=== PATIENT | male | born 1955 | race Caucasian/White ===

== ENCOUNTER 2017-11-13 10:46 | Inpatient (IN) | payer MEDICARE, SELFPAY ==
[2017-11-13 14:45] VITALS: BMI 23.5
[2017-11-13] MEDS ORDERED: Nitroglycerin 2% Ointment 1 INCH/1 GM Packet TOP SCH (14:45)
[2017-11-13 15:24] LABS: CKMB 3.4 ng/mL (0-6.6); Troponin I 0.177 ng/mL (< 0.028)
--- NOTE | 2017-11-13 16:02 | PDOC.EVN ---
Attending Addendum - Attending Addendum I personally evaluated the patient and discussed the management with Dr. Gutierrez. I agree with the History, Examination, Assessment and Plan documented in her H& P with any addition or exceptions noted below. Patient is 62 yo gentleman with CAD s/p CABG 13 years ago, COPD, CHF with EF 35 % (per outside records), who is presenting with 7-10 day history of chest pain. Right sided pressure type pain with radiation to neck and back. Reports similar pain as when he had to have his CABG. Endorses shortness of breath and nausea with pain. Reports symptoms typically occur in the morning and last about 5 minutes. Progressive in nature over the last few days. He endorses not being on his medications for about the last 1 week due to not being able to see his PCP. It has been near 1 year since last visit with [facility] in [place], [place]. He was observed at [facility] with no noted EKG changes. However, troponins elevated to indeterminate range and he was transferred here. He is not currently complaining of chest pain. Repeat EKG here shows a mild decrease in troponins from the outside hospital. EKG shows incomplete RBBB with a single PVC, no evidence of ischemia. He will be obs for telemetry monitoring. Will check another Troponin to see trend at this institution. He seems to be having worsening anginal type pain that could signify unstable angina. Will give a dose of therapeutic lovenox and consult cardiology in the AM due to his medical history. Nitro, Morphine, and O2 provided as needed for symptomatic support. Resume home meds as noncompliance is likely partly to blame for his worsening symptoms.
[2017-11-13] MEDS ORDERED: Nitroglycerin 0.4 MG TAB (25 Tab Bottle) PO PRN (16:33)
[2017-11-13 17:25] LABS: Magnesium 2.1 mg/dL (1.6-2.6)
[2017-11-13 17:38] LABS: CKMB 3.6 ng/mL (0-6.6); Troponin I 0.205 ng/mL (< 0.028)
--- NOTE | 2017-11-13 18:32 | RAD ---
PA AND LATERAL CHEST X-RAY 11/13/17 HISTORY: Chest pain. COMPARISON: None available. FINDINGS: Postsurgical changes related to CABG are noted. The cardiac silhouette and pulmonary vasculature are within normal limits. Bullous emphysematous changes are seen in the upper lobes bilaterally with mild crowding of the bronchovascular markings at each lung base. Lungs are otherwise clear. No pleural ef fusion is identified. Vascular calcifications are seen in the thoracic aorta. Osseous structures are intact. IMPRESSION: 1. No acute cardiopulmonary process. 2. Evidence of COPD. POS: ANJEL
[2017-11-13] MEDS ORDERED: Enoxaparin Sodium 80 MG/0.8 ML SYRINGE SC SCH ×2 (19:30→21:00)
[2017-11-13 20:40] LABS: CKMB 3.2 ng/mL (0-6.6); Troponin I 0.243 ng/mL (< 0.028)
[2017-11-13] MEDS ORDERED: Carvedilol 25 MG TAB PO SCH (21:00)
[2017-11-13] MEDS ORDERED: Famotidine 20 MG TAB PO SCH (21:00)
[2017-11-13] MEDS: Acetaminophen 325 MG TAB PO PRN (23:19)
--- NOTE | 2017-11-13 23:26 | HP-2 ---
CODE STATUS: DNR/DNI discussed extensively with patient and he has the capacity to make his decision and understands the risks. PRIMARY CARE PHYSICIAN: Russ dominguez. ATTENDING PHYSICIAN: Dr. Schwarz. RESIDENT: Petrona Carr, PGY-3. HISTORIAN: Patient and records. SPECIALISTS: Dr. Quinn at the [facility] for Cardiology. CHIEF COMPLAINT: Chest pain History of Presenting Illness: This is a 62-year-old white male with extensive past medical history of coronary artery disease, status post CABG x3, diastolic and systolic congestive heart failure with an EF of 35%, hypertension, hyperlipidemia, COPD, presents with chest pain that has been going on for 10 days; however, this morning around 6:00 while he was lying in bed, the chest pain that felt like an elephant on his chest, lasted about 45 minutes, radiated to his neck, his left arm, and his back. He also complains of shortness of breath and nausea that was relieved with nitro. It started around 6:00 a.m. He also states that he was out of his home medications for over 10 days, as he could not get in to see his primary care doctor to get them refilled. He denies any weight changes, lower extremity edema, fevers or any other symptoms. He states that this felt like his previous heart attack in the past. In the [facility], he was given nitro 0.4 mg sublingual, aspirin 325 mg , heparin 5000 units b.i.d., Xopenex 1.25 mg, ipratropium 0.02%, Atrovent 0.02% , and Ativan 0.5 mg. PAST MEDICAL HISTORY: 1. Coronary artery disease, status post coronary artery bypass graft x3. 2. Benign prostatic hypertrophy. 3. Systolic, diastolic congestive heart failure, EF of 35%. 4. Hypertension. 5. Hyperlipidemia. 6. Chronic obstructive pulmonary disease. PAST SURGICAL HISTORY: 1. CABG x3, ten years ago. 2. Right fracture of the elbow, status post fixation. 3. Skin graft of the foot. ALLERGIES: No known drug allergies. MEDICATIONS: 1. Famotidine 20 mg p.o. b.i.d. 2. Coreg 25 mg p.o. b.i.d. 3. Lisinopril 2.5 mg b.i.d. 4. Ranexa 1000 mg b.i.d. 5. Plavix 75 mg every day. 6. Atorvastatin 80 mg p.o. at bedtime. 7. Spironolactone 25 mg p.o. daily. 8. Finasteride 5 mg p.o. daily. 9. Tamsulosin 0.4 mg daily. 10. Advair inhaler x2. 11. Spiriva inhaler x1. 12. Vitamin C. 13. Aspirin 325 mg x2 daily. FAMILY HISTORY: Dad of heart attack in his 50s. SOCIAL HISTORY: He currently is smoking about 2 cigarettes per week, but he does have a history of 40 pack years; however, he quit about 10 years ago and then just restarted recently smoking. Denies any alcohol use. He admits to a history of marijuana use that he quit over 2 years ago. Occupation: He is currently retired and currently . Denies any ill contacts. REVIEW OF SYSTEMS: Negative other 12-point review of systems reviewed and negative otherwise mentioned in the HPI. PHYSICAL EXAMINATION: VITAL SIGNS: Blood pressure 188/112, pulse 109, respirations 18, T-max 98.0, 100% on 2 liters. GENERAL: Alert, oriented x4, in no acute distress. He is well-developed, well- nourished, appropriately interactive. EYES: Extraocular muscles intact. Conjunctivae within normal limits. ENT: He does have very poor dentition. NECK: Supple, no lymphadenopathy. CARDIOVASCULAR: He does have distant heart sounds. Pedal pulses +1 bilaterally. RESPIRATORY: Respirations are diminished bilaterally. SKIN: Warm and dry, no lesions. ABDOMEN: Soft, nontender to palpation. Bowel sounds present x4. No mass or distention. EXTREMITIES: No clubbing, no cyanosis, no edema. MUSCULOSKELETAL: Structure within normal limits. Tone within normal limits. NEUROLOGIC: No focal deficits. Cranial nerves II-XII grossly intact. GCS of 15. PSYCHIATRIC: Appropriate. LABORATORY DATA: CBC: WBC 7.45, hemoglobin 15, platelets 239. Sodium 140, potassium 4.2, chloride 103, bicarb 26, creatinine is 1.2, glucose 115. Calcium 9.6, total bilirubin 0.6, total protein 7.2, albumin 4.3, AST 15, ALT 14 , alkaline phosphatase 66. BNP 81. Troponin I 0.267. EKG showed sinus tachycardia, PVCs, incomplete right bundle branch block, rate of 101. ASSESSMENT AND PLAN: This is a 62-year-old white male with extensive past medical history of coronary artery disease, status post coronary artery bypass graft x3. 1. Unstable angina, concern for acute coronary syndrome. Cardiac enzymes x3. We will go ahead and get a nitro, aspirin, Plavix 75 mg, and start therapeutic Lovenox. Fasting lipid panel, TSH, magnesium, phosphatase, morphine and p.r.n. We will consult cardiology in the morning. Request records from Dr. Quinn's office. We will consult cardiology in the morning and keep the patient n.p.o. at midnight. 2. Systolic congestive heart failure, EF of 35% over 1 year ago per patient. The patient does not currently appear fluid overloaded at this time. We will consult Cardiology in the morning. We will do an echo. We will continue his home medications, ROSA inhibitor, beta-jules, and aspirin. Strict I's and O's and monitor for signs of fluid overload; however, patient currently does not look fluid overloaded at this time. 3. Hyperlipidemia. Continue home medications. We will already get a fasting lipid panel in the morning. 4. Hypertension. His blood pressure is high likely secondary to missing his medications. We will go ahead and restart his home medications and use p.r.n. hydralazine, labetalol to control his blood pressure. 5. Chronic obstructive pulmonary disease, DuoNebs, and continue his home medications. 6. Benign prostatic hypertrophy. Continue home medications. 7. Chronic oxygen user. He is on 1-2 liters at bedtime at home. We will continue this throughout his stay here, maybe a candidate for evaluation of obstructive sleep apnea outpatient. 8. Tobacco abuse, counseled on cessation. 9. CODE STATUS: The patient is a DNR, which was discussed in detail with patient and he understands what this means. 10. Gastrointestinal prophylaxis, famotidine. 11. Deep venous thrombosis prophylaxis, therapeutic Lovenox. This history and physical exam as well as management was discussed with Dr. Schwarz, who agrees with the above assessment and plan. CELIA
[2017-11-14 00:15] LABS: CKMB 3.4 ng/mL (0-6.6)
[2017-11-14 00:19] LABS: Troponin I 0.354 ng/mL (< 0.028)
[2017-11-14] MEDS ORDERED: Albuterol Sulfate 2.5 mg/3 ml Neb NEB PRN (04:37)
[2017-11-14] MEDS: Nitroglycerin 2% Ointment 1 INCH/1 GM Packet TOP SCH ×4 (05:03→17:47)
[2017-11-14 05:42] LABS: CKMB 3.1 ng/mL (0-6.6)
[2017-11-14 05:44] LABS: Critical Call Chem Troponin I RESULT DECREASING
[2017-11-14 05:51] LABS: Anion Gap 11 mmol/L (10-20); BUN (Urea Nitrogen) 12 mg/dL (8.4-25.7); Calc. Creatinine Clearance 83 mL/min (70-130); Calcium 9.6 mg/dL (7.8-10.44); Carbon Dioxide 29 mmol/L (23-31); Cardiac Risk 3.1 (Less than 4.5); Chloride 103 mmol/L (98-107); Cholesterol 171 mg/dl (< 200 Desired); Estimated GFR-MDRD 83; Glucose 103 mg/dL (80-115); HDL Cholesterol 56 mg/dL (>60 Neg Risk); LDL Cholesterol, Calculated 93 mg/dL; Sodium 139 mmol/L (136-145); Triglycerides 110 mg/dL (Less than 150)
--- NOTE | 2017-11-14 05:59 | PDOC.FM ---
Addendum entered and electronically signed by Noble Chaidez MD 11/14/17 13:36 : went for cath Original Note: - Subjective Subjective: Pt reports doing much better this morning. Says this is the best he has slept in 2 weeks. Denied having any chest pain recently this morning. Shiva any pain or SOB at this time. Says he is feeling good. Thinks his arteries are clogged due to a chemical in his coffee. Denies any other sx's at this time. Denies any other concerns at this time. - Objective MAR Reviewed: Yes Vital Signs & Weight: Vital Signs (12 hours) Temp Pulse Resp BP Pulse Ox 11/14/17 04:10 97.8 F 65 16 146/78 H 100 11/14/17 01:12 74 20 100 11/13/17 23:53 99 11/13/17 23:07 97.9 F 73 18 111/78 99 11/13/17 19:15 98.1 F 74 18 111/57 L 99 Weight Weight 71.668 kg I&O: 11/12/17 11/13/17 11/14/17 06:59 06:59 06:59 Intake Total 1040 Output Total 550 Balance 490 Result Diagrams: 11/14/17 04:12 EKG Reviewed by me: Yes Radiology Reviewed by me: Yes (COPD changes, No acute cardiopulm process. ) <Noble Chaidez - Last Filed: 11/14/17 08:20> - Objective Vital Signs & Weight: Vital Signs (12 hours) Temp Pulse Resp Pulse Ox 11/14/17 14:04 64 16 11/14/17 07:04 98.2 F 66 16 11/14/17 06:40 75 16 11/14/17 06:36 100 11/14/17 06:32 75 16 Weight Weight 71.668 kg I&O: 11/13/17 11/14/17 11/15/17 06:59 06:59 06:59 Intake Total 1040 Output Total 550 Balance 490 Result Diagrams: 11/14/17 04:12 <Brown Kessler - Last Filed: 11/14/17 16:14> Phys Exam - Physical Examination Constitutional: NAD HEENT: PERRLA, moist MMs Neck: no nodes, no JVD, supple, full ROM Respiratory: no rales, no rhonchi, clear to auscultation bilateral some mild crackles and wheezes noted Cardiovascular: RRR, no significant murmur, no rub Gastrointestinal: soft, non-tender, no distention, positive bowel sounds Musculoskeletal: no edema, pulses present Neurological: non-focal, normal sensation, moves all 4 limbs Lymphatic: no nodes Psychiatric: normal affect Skin: no rash, normal turgor, cap refill <2 seconds <Noble Chaidez - Last Filed: 11/14/17 08:20> Dx/Plan (1) Unstable angina Status: Acute (2) Systolic CHF Code(s): I50.20 - UNSPECIFIED SYSTOLIC (CONGESTIVE) HEART FAILURE Status: Acute (3) HTN (hypertension) Code(s): I10 - ESSENTIAL (PRIMARY) HYPERTENSION Status: Acute (4) HLD (hyperlipidemia) Code(s): E78.5 - HYPERLIPIDEMIA, UNSPECIFIED Status: Acute (5) BPH (benign prostatic hyperplasia) Code(s): N40.0 - BENIGN PROSTATIC HYPERPLASIA WITHOUT LOWER URINRY TRACT SYMP Status: Acute (6) COPD (chronic obstructive pulmonary disease) Status: Acute (7) Hx of coronary artery disease Code(s): Z86.79 - PERSONAL HISTORY OF OTHER DISEASES OF THE CIRCULATORY SYSTEM Status: Acute (8) Tobacco abuse Code(s): Z72.0 - TOBACCO USE Status: Acute - Plan Plan: Unstable Angina -Had pain like elephant sitting on his chest, hx of 3 vessel CABG -Trops trended .243, .354, .320 respectively -Repeat EKG stable to previous. Possible RBBB and anterior infarct possible. -On therapeutic lovenox -Nitro PRN -Will consult Cardiology-Dr. Alva- follow recommendations -NPO for now -Ranexa sCHF (EF35%) -awaiting ECHO results -Not fluid overloaded at this time. -Strict I&Os -Continuing home meds at this time HTN -continue home meds HLD -continue home meds COPD -Uses O2 at night at home. Using O2 here. -Duonebs PRN and continue home meds Hx of CAD -Has hx of 3 vessel CABG -Continue with plan above for cardiac history BPH -continue home meds Tobacco Abuse -counseled on cessation <Noble Chaidez - Last Filed: 11/14/17 08:20> Attending Addendum - Attending Addendum I personally evaluated the patient and discussed the management with Dr. Chaidez. I agree with and repeated the History, Examination, Assessment and Plan documented above with any addition or exceptions noted below. Pt doing well post cath. No cp/sob/n/v/f/c. He's hungry. NAD, eating a sandwich. RRR s M, CTAB s w/r/r. Groin site well appearing. Await final rec's. D/c home today vs tomorrow pending course. <Brown Kessler - Last Filed: 11/14/17 16:14>
[2017-11-14] MEDS: Ipratropium Bromide 2.5 ml Neb NEB SCH ×4 (06:32→19:10)
[2017-11-14] MEDS: Mometasone/Formoterol 120 PUFF INHALER INH SCH ×2 (06:40→19:11)
[2017-11-14] MEDS: Acetaminophen 325 MG TAB PO PRN ×2 (06:57→20:30)
[2017-11-14] MEDS: Ascorbic Acid 500 mg Chewable Tablet PO SCH (08:22)
[2017-11-14] MEDS: Famotidine 20 MG TAB PO SCH ×2 (08:23→20:29)
[2017-11-14] MEDS: Aspirin 325 MG TAB PO SCH ×2 (08:23→20:28)
[2017-11-14] MEDS: Finasteride 5 MG TAB PO SCH (08:23)
[2017-11-14] MEDS: Clopidogrel Bisulfate 75 MG TAB PO SCH (08:23)
[2017-11-14] MEDS: Atorvastatin Calcium 40 MG TAB PO SCH (08:23)
[2017-11-14] MEDS: Lisinopril 2.5 MG TAB PO SCH ×2 (08:23→20:29)
[2017-11-14] MEDS: Carvedilol 25 MG TAB PO SCH ×2 (08:24→20:28)
[2017-11-14] MEDS: Tamsulosin HCl 0.4 MG CAP PO SCH (08:24)
[2017-11-14] MEDS: Spironolactone 25 MG TAB PO SCH (08:24)
[2017-11-14] MEDS ORDERED: Aspirin 325 MG TAB PO SCH (09:00)
[2017-11-14] MEDS ORDERED: Enoxaparin Sodium 80 MG/0.8 ML SYRINGE SC SCH ×5 (09:00→21:00)
[2017-11-14] MEDS ORDERED: Non-Formulary Item 1 EACH (Atorvastatin Calcium [Atorvastatin Calcium] 80 MG) PO SCH (09:00)
[2017-11-14] MEDS ORDERED: Lorazepam 0.5 MG TAB PO ONE (09:35)
[2017-11-14] MEDS ORDERED: Diazepam 5 MG TAB PO SCH (10:00)
[2017-11-14] MEDS ORDERED: Communication Order-Pharmacy FS SCH (10:00)
[2017-11-14] MEDS ORDERED: Lidocaine 1% (PF) 30 ML VIAL ONE (10:09)
[2017-11-14] MEDS ORDERED: Iopamidol 370 76% 100 ML VIAL ONE (10:23)
[2017-11-14] MEDS ORDERED: Midazolam HCl 2 mg/2 ml Vial ONE (10:58)
[2017-11-14] MEDS ORDERED: Fentanyl 100 MCG/2 ML VIAL ONE (10:58)
--- NOTE | 2017-11-14 12:27 | CON ---
DATE OF CONSULTATION: 11/14/2017 REASON FOR CONSULTATION: Non-ST elevation myocardial infarction. HISTORY OF PRESENT ILLNESS: Mr. Tobin is a pleasant 62-year-old gentleman who has been having chest p ain for about 10 days at [facility]. It is coming on with low level exertion and sometimes a t rest and finally had a severe episode of pain last night, went to the emergency room at [place], transferred here for further evaluation and therapy. The patient has a history of coronary bypass grafting set about 13 years ago. He said "they hoped to bypass 4 vessels, but were able to bypass 3 vessels." He has been doing well up until the last few weeks in terms of angina. Now he has refractory angina and then the increased troponin level compati ble with a non-ST elevation infarction. The patient by report has an ejection fraction of 35%. MEDICATIONS: 1. Aspirin. 2. Plavix. 3. Atorvastatin 80 mg a day. 4. Carvedilol 25 mg twice a day. 5. Ranexa 1000 mg twice a day. 6. Lisinopril 2.5 mg twice a day. ALLERGIES: None known. SOCIAL HISTORY: He says he smokes 3 cigarettes per week. OTHER PAST HISTORY: He has a history of COPD, had severe respiratory insufficiency, and was hospital ized in 11/2016 at the "[facility] REVIEW OF SYSTEMS: Constitutional: No significant weight gain or loss. Vision: No changes. Heari ng: No changes. Pulmonary: No cough or wheezing. Gastrointestinal: No nausea, vomiting, or diarr hea. Skin: No rashes. Neurologic: No unilateral weakness or numbness. Psychiatric: No unusual d epression or anxiety. Hematologic: No unusual bruising. Genitourinary: No burning with urination. PHYSICAL EXAMINATION: GENERAL: This is a pleasant thin 62-year-old gentleman, who looks older than his chronologic age of 62. VITAL SIGNS: Blood pressure 146/78, pulse 66 and regular. EYES: Sclerae nonicteric. MOUTH: Mucous membranes are moist. NECK: Supple, no lymphadenopathy. LUNGS: Clear. No wheezing, rales, or rhonchi. CARDIAC: Normal S1, normal S2. There is no murmur, rub, or gallop. ABDOMEN: Soft, nontender. No hepatosplenomegaly. EXTREMITIES: Warm and dry. No clubbing, cyanosis, or edema. He has good femoral pulse, dorsalis pe dis, and posterior tibial pulses on the right. PERTINENT LABORATORY DATA: The troponin is 0.354 with peak and also not decreased. Potassium is 4.0 . The LDL cholesterol 93, triglycerides 110, creatinine 0.9. The EKG did not show any ischemic reddy ges. ASSESSMENT: 1. Status post bypass surgery 13 years ago by the patient's report x3. 2. Non-ST elevation myocardial infarction. 3. Congestive heart failure, systolic according to the chart with a previous ejection fraction of 35 %. 4. Smoking. He says 3 cigarettes per week. 5. BNP is not elevated at 81 indicating his heart failure is compensated. 6. The patient had angina just getting up and taking a shower this morning. At this point, the patient needs to undergo repeat cardiac catheterization. There was increased risk of complications in view of previous bypass surgery, depressed left ventricular function, and intrac table angina. Discussed risks of the procedure, stroke, heart attack, iodine allergy, interfering of blood supply to the leg or kidney, stent thrombosis, stent restenosis, distal embolization in a bypa ss graft. He understands and wishes to proceed.
[2017-11-14] MEDS ORDERED: Acetaminophen/Codeine 30-300mg Tablet PO PRN ×2 (12:37)
[2017-11-14] MEDS ORDERED: traMADol HCl 50 MG TAB PO PRN (12:37)
[2017-11-14] MEDS ORDERED: Nitroglycerin 0.4 MG TAB (25 Tab Bottle) SL PRN (12:37)
[2017-11-14] MEDS ORDERED: Sodium Chloride 0.9% 200 ML IV SCH (12:45)
[2017-11-14] MEDS: Sodium Chloride 0.9% 1,000 ML IV SCH ×2 (13:02→15:04)
[2017-11-15] MEDS: Nitroglycerin 2% Ointment 1 INCH/1 GM Packet TOP SCH ×3 (02:00→07:16)
--- NOTE | 2017-11-15 05:42 | PDOC.FM ---
- Subjective Subjective: Pt reports doing better this morning. Reports sleeping through the night. Denies any fever or chills. Denies any acute events overnight. Says he is having some R. sided chest pain. Was getting SOB talking for a long period of time. Said he needed his spireva inhaler. Denied any chest pressure or chest pain with movement. Says that maybe his chest pain was more related to his breathing and not his heart. - Objective MAR Reviewed: Yes Vital Signs & Weight: Vital Signs (12 hours) Temp Pulse Resp BP BP Pulse Ox 11/15/17 04:00 97.7 F 66 19 124/68 100 11/14/17 20:29 66 147/76 H 11/14/17 20:00 97.8 F 66 18 147/76 H 100 11/14/17 19:35 97.8 F 66 18 100 Weight Weight 71.668 kg I&O: 11/13/17 11/14/17 11/15/17 06:59 06:59 06:59 Intake Total 1040 1288 Output Total 550 350 Balance 490 938 Result Diagrams: 11/14/17 04:12 <Noble Chaidez - Last Filed: 11/15/17 08:44> - Objective Vital Signs & Weight: Vital Signs (12 hours) Temp Pulse Resp BP Pulse Ox 11/15/17 11:03 84 16 11/15/17 07:49 86 11/15/17 07:35 98 F 74 20 160/85 H 99 11/15/17 07:24 86 16 11/15/17 07:17 100 11/15/17 07:16 86 16 11/15/17 04:00 97.7 F 66 19 124/68 100 Weight Weight 68.855 kg I&O: 11/14/17 11/15/17 11/16/17 06:59 06:59 06:59 Intake Total 1040 1968 Output Total 550 1075 Balance 490 893 Result Diagrams: 11/14/17 04:12 <Jolene Coronado - Last Filed: 11/15/17 12:10> Phys Exam - Physical Examination HEENT: PERRLA, moist MMs Neck: no nodes, full ROM Respiratory: no wheezing, no rhonchi mild rales Cardiovascular: RRR, no significant murmur, no rub Gastrointestinal: soft, non-tender, no distention, positive bowel sounds Musculoskeletal: no edema, pulses present Neurological: non-focal, normal sensation, moves all 4 limbs Lymphatic: no nodes Psychiatric: normal affect, A&O x 3 Skin: no rash, normal turgor, cap refill <2 seconds <KaylynnNoble - Last Filed: 11/15/17 08:44> Dx/Plan (1) Unstable angina Status: Acute (2) Systolic CHF Code(s): I50.20 - UNSPECIFIED SYSTOLIC (CONGESTIVE) HEART FAILURE Status: Acute (3) HTN (hypertension) Code(s): I10 - ESSENTIAL (PRIMARY) HYPERTENSION Status: Acute QualifierTitle: Hypertension type: essential hypertension Qualified Code( s): I10 - Essential (primary) hypertension (4) HLD (hyperlipidemia) Code(s): E78.5 - HYPERLIPIDEMIA, UNSPECIFIED Status: Acute (5) BPH (benign prostatic hyperplasia) Code(s): N40.0 - BENIGN PROSTATIC HYPERPLASIA WITHOUT LOWER URINRY TRACT SYMP Status: Acute QualifierTitle: Lower urinary tract symptom presence: symptoms absent Qualified Code(s): N40.0 - Benign prostatic hyperplasia without lower urinary tract symptoms (6) COPD (chronic obstructive pulmonary disease) Status: Acute (7) Hx of coronary artery disease Code(s): Z86.79 - PERSONAL HISTORY OF OTHER DISEASES OF THE CIRCULATORY SYSTEM Status: Acute (8) Tobacco abuse Code(s): Z72.0 - TOBACCO USE Status: Acute - Plan Plan: Unstable Angina -Had pain like elephant sitting on his chest, hx of 3 vessel CABG -Trops trended .243, .354, .320 respectively -Repeat EKG stable to previous. RBBB and anterior infarct possible. -On therapeutic lovenox -Nitro PRN -Will consult Cardiology-Dr. Alva -Cath 11/14- Vessels patent, no acute blockage seen -Medical managment -Tameka BernabeF (EF35%) -awaiting ECHO results Cath showed EF of 35% -Not fluid overloaded at this time. -Strict I&Os -Continuing home meds at this time HTN -continue home meds HLD -continue home meds COPD -Uses O2 at night at home. Using O2 here. -will do yuriy duonebs as was having some SOB -Pt chest pain may be related to his breathing. May have mild COPD exacerbation. Will assess him later after spireva and see how he is doing. May not hurt to give him a steroid burst and levaquin for excacerbation Hx of CAD -Has hx of 3 vessel CABG -Continue with plan above for cardiac history BPH -continue home meds Tobacco Abuse -counseled on cessation <Noble Chaidez - Last Filed: 11/15/17 08:44> Attending Addendum - Attending Addendum I personally evaluated the patient and discussed the management with Dr. Chaidez I agree with the History, Examination, Assessment and Plan documented above with any addition or exceptions noted below- Patient with SOB this AM; improved with duoneb. Afebrile VSS A/P: 1) NSTEMI- cath negative; plans as per cardiology. 2) COPD exacerbation- appears that some of his symptoms may be due to COPD exacerbation- started on schedule nebs; will add po prednisone and levaquin. <Jolene Coronado - Last Filed: 11/15/17 12:10>
[2017-11-15] MEDS: Ipratropium Bromide 2.5 ml Neb NEB SCH ×3 (07:16→15:18)
[2017-11-15] MEDS: Mometasone/Formoterol 120 PUFF INHALER INH SCH (07:24)
[2017-11-15] MEDS: Tamsulosin HCl 0.4 MG CAP PO SCH (07:47)
[2017-11-15] MEDS: Clopidogrel Bisulfate 75 MG TAB PO SCH (07:47)
[2017-11-15] MEDS: Atorvastatin Calcium 40 MG TAB PO SCH (07:48)
[2017-11-15] MEDS: Famotidine 20 MG TAB PO SCH (07:48)
[2017-11-15] MEDS: Spironolactone 25 MG TAB PO SCH (07:48)
[2017-11-15] MEDS: Ascorbic Acid 500 mg Chewable Tablet PO SCH (07:49)
[2017-11-15] MEDS: Carvedilol 25 MG TAB PO SCH (07:49)
[2017-11-15] MEDS: Lisinopril 2.5 MG TAB PO SCH (07:49)
[2017-11-15] MEDS: Finasteride 5 MG TAB PO SCH (07:49)
[2017-11-15] MEDS: Aspirin 325 MG TAB PO SCH (07:49)
[2017-11-15] MEDS ORDERED: Lisinopril 2.5 MG TAB PO SCH (09:34)
[2017-11-15] MEDS ORDERED: Ezetimibe 10 MG TAB PO SCH ×2 (09:45→10:30)
--- NOTE | 2017-11-15 09:54 | PRG ---
DATE OF SERVICE: 11/15/2017 Mr. Tobin had a recurrent episode of chest tightness at rest which was severe this morning. He is doi ng okay now. PHYSICAL EXAMINATION: VITAL SIGNS: Blood pressure 160/85, pulse was 74 earlier, 86 now. LUNGS: Clear. CARDIAC: Normal S1 and S2. ABDOMEN: Soft, nontender. The cardiac catheterization yesterday showed patent grafts to the LAD, obtuse marginal, and right cor onary. There was some proximal area of the LAD that is not adequately vascularized in terms of the s eptal perforating artery and the diagonal branch, but there is diffuse disease in these segments. Th is is likely the source of the non-ST elevation infarction. He also some 60% lesion in the right cor onary distal to the anastomosis that seems to be unlikely to be the source of his recurrent angina. ASSESSMENT: 1. Non-ST elevation infarction. 2. Coronary artery disease. 3. Ejection fraction 35%. He said it was lower than that previously. 4. Previous bypass surgery. PLAN: 1. We will change from Plavix to Brilinta. 2. Add Zetia to try to get his LDL cholesterol lower. 3. Increase lisinopril. 4. Hopefully home later. Medical therapy looks like the only real option at this point. Stenting o f the right coronary could be done, but that does not appear to be the source of his angina.
[2017-11-15] MEDS ORDERED: TICAGRELOR 90 MG TABLET PO SCH ×2 (10:15→21:00)
[2017-11-15] MEDS ORDERED: predniSONE 20 MG TAB PO SCH (11:45)
--- NOTE | 2017-11-15 11:52 | PQF ---
CLINICAL DOCUMENTATION IMPROVEMENT CLARIFICATION FORM: ICD-10 Updated PLEASE DO AN ADDENDUM TO THE PROGRESS NOTE WITH ANY DOCUMENTATION UPDATES OR ADDITIONS AND CARRY THROUGH TO DC SUMMARY. THANK YOU. DATE: 11/15 ATTN: IVEILSSE HEIN/ DR. Jimbo CHAPA Please exercise your independent, professional judgment in responding to the clarification form. Clinical indicators are provided on the bottom of this form for your review. Please check appropriate box(s): [ x ] NSTEMI [ ] AMI Type II [ ] Demand Ischemia [ ] Unstable Angina [ ] Other diagnosis [ ] Unable to determine CLINICAL INDICATORS - SIGNS / SYMPTOMS / LABS TROP: 0.177, 0.205, 0.243, 0.354, 0.320 (11/13 - ) ATTENDING PHYSICIAN H&P DOCUMENTATION 11/13: HX PRESENT ILLNESS: PRESENTS W/ CHEST PAIN THAT HAS BEEN GOING ON FOR 10 DAYS; HOWEVER, THIS MORNING THE CP FELT LIKE AN ELEPHANT ON HIS CHEST. ...HE STATES THAT THIS FELT LIKE HIS PREVIOUS HEART ATTACK IN THE PAST. ASSESSMENT/PLAN: 1) UNSTABLE ANGINA, CONCERN FOR ACUTE CORONARY SYNDROME CARDIOLOGY CONSULT DOCUMENTATION 11/14: REASON FOR CONSULTATION: NSTEMI. HX PRESENT ILLNESS: ...HE HAD A SEVERE EPISODE OF PAIN LAST NIGHT, WENT TO THE ER AT [facility]. ...NOW HE HAS REFRACTORY ANGINA & THEN THE INCREASED TROPONIN LEVEL COMPATIBLE WITH A NSTEMI ASSESSMENT: 2) NSTEMI ATTENDING PN 11/14 & : DX/PLAN: 1) UNSTABLE ANGINA CARDIOLOGY PN 11/15: ASSESSMENT: 1) NSTEMI RISKS: HTN HX CAD S/P CABG ELEVATED TROPONINS SEVERE CHEST PAIN TREATMENTS: EMERGENT L HEART CATH (11/14) SERIAL CARDIAC ENZYMES (11/13-) CARDIOLOGY CONSULT NITRO PASTE TOPICAL (10/14 - PRESENT) TELEMETRY MONITORING (10/13 - PRESENT) THANK YOU! Rosita (This form is maintained as a part of the permanent medical record) 2015 [employer]. All Rights Reserved Rosita Ibrahim RN, BSN [email or web address] Office: [phone] [facility]ITAL[facility]
[2017-11-15 15:58] VITALS: BP 110/63; TEMP 98.4
[2017-11-15] MEDS ORDERED: Lisinopril 5 MG TAB PO SCH (21:00)
--- NOTE | 2017-11-16 00:48 | DIS-2 ---
DATE OF ADMISSION: 11/13/2017 DATE OF DISCHARGE: 11/15/2017 CONSULTATIONS: Cardiology, Dr. Alva. PROCEDURES PERFORMED: 1. A heart catheterization on 11/14/2017 that showed a 3-vessel coronary artery disease, patent left internal mammary artery to left anterior descending, patent saphenous vein graft to right coronary a rtery and obtuse marginal and an ejection fraction of 35% apex kinetic. He also had an echo done on 11/14/2017, which showed ejection fraction of 40% to 45%, left ventricular size mildly increased and nothing else. 2. A chest x-ray on 11/13/2017 showed no acute cardiopulmonary process. A. Evidence of chronic obstructive pulmonary disease. PRIMARY DIAGNOSES: 1. Cka-YU-[id number] elevation myocardial infarction. 2. Systolic congestive heart failure with an ejection fraction of 40% to 45%. 3. Chronic obstructive pulmonary disease exacerbation. SECONDARY DIAGNOSES: 1. Hypertension. 2. Hyperlipidemia. 3. History of coronary artery disease with history of 3-vessel coronary artery bypass grafting. 4. Benign prostatic hypertrophy. 5. Tobacco abuse. DISCHARGE MEDICATIONS: Include atorvastatin, calcium 80 mg p.o. daily, carvedilol 25 mg p.o. b.i.d., Zetia 10 mg p.o. daily, Levaquin 750 mg p.o. for 7 days by daily, lisinopril 5 mg p.o. b.i.d., predn isone 40 mg p.o. for 4 days, Ranexa 1000 mg p.o. b.i.d., spironolactone 25 mg p.o. daily, Brilinta 90 mg p.o. b.i.d., tramadol 50 mg p.o. q.6 hours p.r.n., acetaminophen 650 mg p.o. q.4 hours p.r.n., Ve ntolin nebulizer 2.5 mg nebulized b.i.d., ascorbic acid 500 mg p.o. daily, aspirin 81 mg p.o. daily, famotidine 20 mg p.o. b.i.d., finasteride 5 mg p.o. daily, fluticasone salmeterol 1 puff inhaler b.i. d., tamsulosin 0.4 mg p.o. daily and Spiriva 1 puff inhaler daily. DISCONTINUED MEDICATIONS: Include Plavix. HISTORY OF PRESENT ILLNESS AND BRIEF HOSPITAL COURSE: This is a 62-year-old white male with an exten sive past medical history of coronary artery disease status post CABG x3, diastolic and systolic radha estive heart failure with an ejection fraction of 35%, hypertension, hyperlipidemia and COPD, came in with chest pain that has been going on for 10 days, but however, at 6:00 this morning while lying in bed, felt like an elephant was in his chest, radiated to his neck and his left arm and to his back. He said it felt like his heart attack in the past. He also states that he was out of his home medic ations for over 10 days as he could not get in to see his primary care doctor to get them refilled. At this time, he came in and was given nitro, which helped resolve the pain. When he came in, we laxmi cked. His initial troponin on 11/13/2017 was 1.177, which trended to 0.205 to 0.243 to 0.354 and wenceslao n to 0.320. We would start him on therapeutic Lovenox. Give him nitro p.r.n. We will give him morp madina for pain as needed and continue to monitor him overnight. His EKG only showed right bundle bran ch block did not show any ST changes on the . We consulted Cardiology for assessment. At that t antonette, they took him down for heart catheterization. Results can be seen above. At this time, they di d not see anything in the heart catheterization, recommended medical management. They switched his P lavix to Brilinta increased his lisinopril to 5 mg daily. On the , he was doing a lot better. H is chest pain resolved. We kept him overnight, continue to watch him. Vital signs were stable. Lab s continued to stay stable. When we saw him in the morning, he was complaining of some right-sided c hest pain. When I talked to him, he kept getting short of breath. He started to think that maybe hi s chest pain and all his symptoms were more related to shortness of breath. He does have an extensiv e history of chronic obstructive pulmonary disease, which he uses oxygen at night. At this time, we decided that he might be suffering from a little mild chronic obstructive pulmonary disease exacerbat ion. We started him on prednisone and Levaquin and decided that we would send him home outpatient wi th a short steroid burst and continue Levaquin outpatient for chronic obstructive pulmonary disease e xacerbation. I will check with Dr. Alva. He was good for discharge on the . DISCHARGE CONDITION: Stable. DISCHARGE DISPOSITION AND MEDICATIONS: Discharge him home with all his new medications. DISCHARGE ACTIVITY: As tolerated. DISCHARGE LOCATION: Home. DISCHARGE DIET: Heart healthy diet. 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
[2017-11-16] MEDS ORDERED: predniSONE 20 MG TAB PO SCH (08:00)
[2017-11-16] MEDS ORDERED: Aspirin 325 MG TAB PO SCH (09:00)
[2017-11-16] MEDS ORDERED: Ezetimibe 10 MG TAB PO SCH (09:00)
--- NOTE | 2018-01-18 13:52 | EKG ---
Test Reason : C/O CHEST PAIN Blood Pressure : / mmHG Vent. Rate : 101 BPM Atrial Rate : 101 BPM P-R Int : 136 ms QRS Dur : 104 ms QT Int : 362 ms P-R-T Axes : 086 091 079 degrees QTc Int : 469 ms Sinus tachycardia with occasional Premature ventricular complexes Possible Left atrial enlargement Rightward axis Incomplete right bundle branch block Anterior infarct , age undetermined Abnormal ECG Confirmed by BORIS DODD, MAURO ([id number]) on 01/18/2018 1:52:16 PM Referred By: PEDRO LUIS PHILLIPS Confirmed By:MAURO ESCALANTE MD
--- NOTE | 2018-01-18 13:55 | EKG ---
Test Reason : CHEST PAIN Blood Pressure : / mmHG Vent. Rate : 061 BPM Atrial Rate : 061 BPM P-R Int : 122 ms QRS Dur : 114 ms QT Int : 462 ms P-R-T Axes : 068 078 094 degrees QTc Int : 465 ms Normal sinus rhythm Incomplete right bundle branch block Cannot rule out Inferior infarct , age undetermined Cannot rule out Anterior infarct (cited on or before 13-NOV-2017) Abnormal ECG Confirmed by MAURO ESCALANTE MD ([id number]) on 01/18/2018 1:55:35 PM Referred By: BABATUNDE Confirmed By:MAURO ESCALANTE MD
--- NOTE | 2018-01-18 13:56 | EKG ---
Test Reason : TIMED Blood Pressure : / mmHG Vent. Rate : 067 BPM Atrial Rate : 067 BPM P-R Int : 108 ms QRS Dur : 114 ms QT Int : 464 ms P-R-T Axes : 057 067 096 degrees QTc Int : 490 ms Sinus rhythm with short OR Incomplete right bundle branch block Possible Inferior infarct (cited on or before 14-NOV-2017) Cannot rule out Anterior infarct (cited on or before 13-NOV-2017) Abnormal ECG Confirmed by MAURO ESCALANTE MD ([id number]) on 01/18/2018 1:56:16 PM Referred By: PEDRO LUIS CH Confirmed By:MAURO ESCALANTE MD
== END 2017-11-15 18:45 | disposition home or self-care (01) | DRG 281 ==
LOC: 2SW 13:33 → OBSVTOIN 11-14 09:56 → 2NO 11-14 18:12
PROVIDERS: ADMIT Student in an Organized Health Care Education/Training Program; ATTEND Student in an Organized Health Care Education/Training Program
PROC: 4A023N7 Measurement of Cardiac Sampling and Pressure, Left Heart, Percutaneous Approach (ICD-10-PCS; principal; 2017-11-14)
PROC: B2111ZZ Fluoroscopy of Multiple Coronary Arteries using Low Osmolar Contrast (ICD-10-PCS; 2017-11-14)
PROC: B2181ZZ Fluoroscopy of Left Internal Mammary Bypass Graft using Low Osmolar Contrast (ICD-10-PCS; 2017-11-14)
PROC: B2151ZZ Fluoroscopy of Left Heart using Low Osmolar Contrast (ICD-10-PCS; 2017-11-14)
PROC: B2131ZZ Fluoroscopy of Multiple Coronary Artery Bypass Grafts using Low Osmolar Contrast (ICD-10-PCS; 2017-11-14)
DX: I25.110 Atherosclerotic heart disease of native coronary artery with unstable angina pectoris (principal); I21.4 Non-ST elevation (NSTEMI) myocardial infarction; Z99.81 Dependence on supplemental oxygen; I50.42 Chronic combined systolic (congestive) and diastolic (congestive) heart failure; I11.0 Hypertensive heart disease with heart failure; J44.1 Chronic obstructive pulmonary disease with (acute) exacerbation; I45.10 Unspecified right bundle-branch block; Z95.1 Presence of aortocoronary bypass graft; E78.5 Hyperlipidemia, unspecified; N40.0 Benign prostatic hyperplasia without lower urinary tract symptoms; Z86.79 Personal history of other diseases of the circulatory system; F17.210 Nicotine dependence, cigarettes, uncomplicated; Z66 Do not resuscitate
CPT/HCPCS: 36415; 71046; 76942; 80048; 80061; 82553; 83735; 84100; 84443; 84484; 93005; 93010; 93306; 93459; 94640; 94664; 94760; 99152; 99153; C1769; J1644; J1650; J2001; J2250; J3010; J7506; J7620; J7644

== ENCOUNTER 2018-02-13 11:38 | Outpatient (CLI) | payer MEDICARE, OTHER ==
[2018-02-13 12:29] LABS: Hemoglobin 12.7 g/dL (14.0-18.0); Mean Corpuscular HGB CONC 33.8 g/dL (32.0-36.0); Mean Corpuscular Hemoglobin 32.1 pg (27.0-31.0); Mean Corpuscular Volume 94.9 fl (80.0-94.0); Mean Platelet Volume 6.5 fL (7.4-10.4); Platelet Count 275 thou/uL (130-400); RBC Distribution Width 14.2 % (11.5-14.5); Red Blood Cell (RBC) Count 3.95 mill/uL (4.70-6.10)
[2018-02-13 12:53] LABS: ALT (SGPT) 13 U/L (8-55); AST (SGOT) 9 U/L (5-34); Albumin 4.3 g/dL (3.4-4.8); Alkaline Phosphatase 59 U/L (40-150); Anion Gap 14 mmol/L (10-20); BUN (Urea Nitrogen) 32 mg/dL (8.4-25.7); Bilirubin, Total 0.7 mg/dL (0.2-1.2); Calc. Creatinine Clearance 0 mL/min (70-130); Calcium 9.9 mg/dL (7.8-10.44); Carbon Dioxide 24 mmol/L (23-31); Chloride 99 mmol/L (98-107); Estimated GFR-MDRD 47; Globulin 2.6 g/dL (2.4-3.5); Glucose 99 mg/dL (80-115); Potassium 5.1 mmol/L (3.5-5.1); Protein, Total 6.9 g/dL (5.8-8.1); Sodium 132 mmol/L (136-145)
== END 2018-02-13 11:39 | disposition home or self-care (01) ==
LOC: LABBT 11:38
PROVIDERS: ATTEND Internal Medicine Cardiovascular Disease
DX: Z01.812 Encounter for preprocedural laboratory examination (principal); I25.10 Atherosclerotic heart disease of native coronary artery without angina pectoris
CPT/HCPCS: 80053; 85027

== ENCOUNTER 2018-02-18 06:05 | Observation (INO) | payer MEDICARE, OTHER ==
[2018-02-18] MEDS ORDERED: Diazepam 5 MG TAB ONE (06:37)
[2018-02-18] MEDS ORDERED: Iopamidol 370 76% 100 ML VIAL ONE (06:38)
[2018-02-18] MEDS ORDERED: Iopamidol 370 76% 50 ML VIAL FS ONE (06:38)
[2018-02-18] MEDS ORDERED: Lidocaine 1% (PF) 30 ML VIAL ONE (06:50)
[2018-02-18] MEDS ORDERED: Midazolam HCl 2 mg/2 ml Vial ONE (07:36)
[2018-02-18] MEDS ORDERED: Fentanyl 100 MCG/2 ML VIAL ONE (07:37)
[2018-02-18] MEDS ORDERED: Nitroglycerin 100MG/250ML BOT 250 ML ONE (07:52)
[2018-02-18] MEDS ORDERED: Heparin 10,000 UNITS/1 ML VIAL ONE (09:17)
[2018-02-18] MEDS ORDERED: Acetaminophen/Codeine 30-300mg Tablet PO PRN ×2 (10:23)
[2018-02-18] MEDS ORDERED: traMADol HCl 50 MG TAB PO PRN (10:23)
[2018-02-18] MEDS ORDERED: Nitroglycerin 0.4 MG TAB (25 Tab Bottle) SL PRN (10:23)
[2018-02-18] MEDS ORDERED: Sodium Chloride 0.9% 1,000 ML IV SCH ×2 (10:30)
[2018-02-18] MEDS ORDERED: traMADol HCl 50 MG TAB ONE (13:02)
[2018-02-18 15:52] VITALS: BMI 24.5
[2018-02-18] MEDS ORDERED: Albuterol Sulfate 2.5 mg/3 ml Neb NEB PRN (16:00)
[2018-02-18] MEDS: Ipratropium Bromide 2.5 ml Neb NEB SCH ×2 (18:45→18:56)
[2018-02-18] MEDS: Albuterol Sulfate 2.5 mg/3 ml Neb NEB SCH ×2 (18:56→18:58)
[2018-02-18] MEDS: Mometasone/Formoterol 120 PUFF INHALER INH SCH (18:57)
[2018-02-18] MEDS: Acetaminophen 500 MG TAB PO PRN (19:10)
[2018-02-18] MEDS: Carvedilol 6.25 MG TAB PO SCH (20:43)
[2018-02-18] MEDS: Famotidine 20 MG TAB PO SCH (20:44)
[2018-02-18] MEDS: TICAGRELOR 90 MG TABLET PO SCH (20:45)
[2018-02-18] MEDS ORDERED: Atorvastatin Calcium 40 MG TAB PO SCH (21:00)
[2018-02-18] MEDS ORDERED: Tamsulosin HCl 0.4 MG CAP PO SCH (21:00)
[2018-02-18] MEDS ORDERED: Finasteride 5 MG TAB PO SCH (21:00)
--- NOTE | 2018-02-18 23:49 | EKG ---
Test Reason : POST STENS X3 Blood Pressure : / mmHG Vent. Rate : 067 BPM Atrial Rate : 067 BPM P-R Int : 146 ms QRS Dur : 092 ms QT Int : 384 ms P-R-T Axes : 080 089 102 degrees QTc Int : 405 ms Normal sinus rhythm Low voltage QRS Incomplete right bundle branch block Nonspecific T wave abnormality Abnormal ECG When compared with ECG of 14-NOV-2017 12:50, QT has shortened Confirmed by ASH DODD, SKeyon ([id number]) on 02/18/2018 11:49:13 PM Referred By: ERIC Confirmed By:DR. Tuan ALEMAN MD
[2018-02-19] MEDS: Ipratropium Bromide 2.5 ml Neb NEB SCH ×3 (00:37→12:51)
[2018-02-19] MEDS: Acetaminophen 500 MG TAB PO PRN (05:58)
[2018-02-19 06:11] LABS: Anion Gap 6 mmol/L (10-20); BUN (Urea Nitrogen) 15 mg/dL (8.4-25.7); Calc. Creatinine Clearance 102 mL/min (70-130); Calcium 8.5 mg/dL (7.8-10.44); Carbon Dioxide 26 mmol/L (23-31); Chloride 106 mmol/L (98-107); Estimated GFR-MDRD Greater than 90; Glucose 95 mg/dL (80-115); Potassium 4.2 mmol/L (3.5-5.1); Sodium 134 mmol/L (136-145)
[2018-02-19] MEDS: Mometasone/Formoterol 120 PUFF INHALER INH SCH (07:33)
[2018-02-19] MEDS: Albuterol Sulfate 2.5 mg/3 ml Neb NEB SCH (07:33)
[2018-02-19] MEDS: Famotidine 20 MG TAB PO SCH (08:15)
[2018-02-19] MEDS: TICAGRELOR 90 MG TABLET PO SCH (08:15)
[2018-02-19] MEDS: Carvedilol 6.25 MG TAB PO SCH (08:16)
[2018-02-19] MEDS ORDERED: Ezetimibe 10 MG TAB PO SCH (09:00)
[2018-02-19] MEDS ORDERED: TICAGRELOR 90 MG TABLET PO SCH (09:00)
[2018-02-19] MEDS ORDERED: Lisinopril 5 MG TAB PO SCH (09:00)
[2018-02-19] MEDS ORDERED: Ascorbic Acid 500 mg Chewable Tablet PO SCH (09:00)
[2018-02-19] MEDS ORDERED: Furosemide 20 MG/2 ML VIAL SLOW IVP SCH (10:30)
[2018-02-19] MEDS ORDERED: Potassium Chloride 20 MEQ TAB PO SCH (10:30)
--- NOTE | 2018-02-19 11:37 | DIS ---
HOSPITAL COURSE: Mr. Tobin underwent intervention of the coronary artery yesterday. I did do an nilda ogram of the [place] coronaries on the left. There was diffuse atherosclerosis. He had a patent hay t to the LAD and obtuse marginal, but some of the diagonal branches and septal perforating arteries a re not well perfused, but there is really no further intervention feasible for these areas. The patient did have stenting of the right coronary artery. I placed initially a 2.25 x 12 mm stent, but the proximal segment did not look adequate; therefore, another 2.25 x 12 was placed, but again t he proximal segment of that was inadequate; therefore, a 2.5 x 8 mm stent was used to treat that prox imal edge. It was all post-dilated to 2.5. Very proximal millimeter or two of the stent is likely i n the vessel size which is larger as it tapers up substantially proximally to 3 mm, but the rest of v essel, the stent appears well opposed. The patient did well, still has occasional anginal pain, prob ably from the vessels in the proximal LAD segment. There is no further intervention feasible there. While he was here I took him off spironolactone as he was hyperkalemic recently, gave him fluid and his kidney function normalized. I took him off of spironolactone, put him on furosemide 20 mg a day a nd reduce carvedilol to 12.5 mg twice a day. The patient is to be released home. Long-term prognosi s is guarded.
[2018-02-19 12:00] VITALS: BP 105/58; TEMP 98
[2018-02-20] MEDS ORDERED: Furosemide 20 MG TAB PO SCH (09:00)
== END 2018-02-19 15:23 | disposition home or self-care (01) ==
LOC: SDC 06:05 → 2SW 13:27
PROVIDERS: ADMIT Internal Medicine Cardiovascular Disease; ATTEND Internal Medicine Cardiovascular Disease
PROC: 4A023N7 Measurement of Cardiac Sampling and Pressure, Left Heart, Percutaneous Approach (ICD-10-PCS; principal; 2018-02-18)
DX: I25.118 Atherosclerotic heart disease of native coronary artery with other forms of angina pectoris (principal); I11.0 Hypertensive heart disease with heart failure; I50.42 Chronic combined systolic (congestive) and diastolic (congestive) heart failure; J44.9 Chronic obstructive pulmonary disease, unspecified; E78.00 Pure hypercholesterolemia, unspecified; I25.2 Old myocardial infarction
CPT/HCPCS: 76942; 80048; 85347 ×3; 93005; 93455; 93798; 94640 ×5; 96374; C1769 ×2; C1874; C1887; C9600; G0378; 36415; 92928; 99152; 99153; A4216; J1644; J1940; J2001; J2250; J3010; J7050; J7611; J7644

== ENCOUNTER 2018-02-26 15:39 | Observation (INO) | payer MEDICARE, OTHER ==
[2018-02-26] MEDS ORDERED: Ondansetron HCl/PF 4 MG/2 ML Vial IVP PRN (16:28)
[2018-02-26] MEDS ORDERED: Milk Of Magnesia 30 ML UDCUP PO PRN (16:28)
[2018-02-26] MEDS ORDERED: Calcium Carbonate 500 MG ChewTAB PO PRN (16:28)
[2018-02-26] MEDS ORDERED: Ondansetron ODT 4 MG TAB PO PRN (16:28)
[2018-02-26] MEDS ORDERED: Nitroglycerin 0.4 MG TAB (25 Tab Bottle) PO PRN (16:30)
[2018-02-26] MEDS ORDERED: Albuterol Sulfate 2.5 mg/3 ml Neb NEB PRN (16:30)
--- NOTE | 2018-02-26 16:38 | PDOC.FPRHP ---
- History of Present Illness Chief Complaint: SOB History of Present Illness: 63yo CM with pmhx CAD s/p stent on 02/18/18 in RCA and prior CABG with chronic LAD occlusion presents to [place] ED after progressively worsening SOB since his procedure. Pt also has PMHx HTN, HLD and COPD on 2L O2 by NC at home. He states since returning home after [facility] on 02/18 (outpatient), his daughter has been unable to go fill his meds as changed by Dr. Alva (changed dose of coreg , d/c'ed spironolactone and added lasix) but he has been taking all of his other meds he currently had at home. Also endorses smoking a cigarette yesterday when he was SOB which worsened his symptoms. Endorses associated cough, and sputum production, and noticed his home 2L was insufficient to help his shortness of breath. ED Course: Sublingual NTG, Duobneb & labetolol at [facility] - Allergies/Adverse Reactions Allergies Allergy/AdvReac Type Severity Reaction Status Date / Time No Known Drug Allergies Allergy Verified 02/13/18 11:46 - Home Medications Medication Instructions Recorded Confirmed Type ALButerol Sulfate [Ventolin Neb] 1 each NEB BID PRN 11/13/17 02/26/18 History Finasteride 5 mg PO HS 11/13/17 02/26/18 History Tamsulosin HCl 0.4 mg PO HS 11/13/17 02/26/18 History Atorvastatin Calcium 80 mg PO DAILY #30 tablet 11/15/17 02/26/18 Rx Ezetimibe [Zetia] 10 mg PO DAILY #30 tab 11/15/17 02/26/18 Rx Ranolazine [Ranexa] 1,000 mg PO BID #60 tab.er.12h 11/15/17 02/26/18 Rx Ascorbic Acid [Vitamin C] 500 mg PO DAILY 02/13/18 02/26/18 History Fluticasone/Salmeterol [Advair 2 puff INH BID 02/13/18 02/26/18 History Diskus 250/50] Lisinopril [Zestril] 5 mg PO DAILY 02/13/18 02/26/18 History Ticagrelor [Brilinta] 1 tab PO DAILY 02/13/18 02/26/18 History Tiotropium [place] [Spiriva 1 tab PO DAILY 02/13/18 02/26/18 History Respimat] Aspirin [Aspirin Chewable Tablet] 81 mg PO DAILY #100 tab 02/19/18 02/26/18 Rx Carvedilol [Coreg] 12.5 mg PO BID #60 tab 02/19/18 02/26/18 Rx Famotidine [Pepcid] 20 mg PO BID #60 tab 02/19/18 02/26/18 Rx Furosemide [Lasix] 20 mg PO DAILY #30 tab 02/19/18 02/26/18 Rx Nitroglycerin [Nitrostat] 0.4 mg SL Q5MIN PRN #20 tab 02/19/18 02/26/18 Rx - History PMHx: CAD s/p CABG & recent RCA stent, HTN, HLD, tobacco abuse, COPD on home O2 , prior UT, BPH, mixed CHF (EF 35%) PSHx: CABG in 2002, [facility] 02/18/18, Rt elbow ORIF, foot skin graft FHx: CAD (father of UT in his 50s) Social: Denies ETOH and drug use. Prior MJ abuse. Endorses tobacco abuse x 30+ yrs. Has decreased cigarette use to 2-4 cigs/week. - Review of Systems General: reports: fatigue. denies: fever/chills, weight/appetite/sleep changes , night sweats Eyes: denies: eye pain, vision changes ENT: denies: nasal congestion, rhinorrhea Respiratory: reports: cough, congestion, shortness of breath, exercise intolerance Cardiovascular: denies: chest pain, edema, orthopnea Gastrointestinal: denies: nausea, vomiting, diarrhea, constipation, abdominal pain Genitourinary: denies: dysuria, polyuria Skin: denies: rashes, lesions Musculoskeletal: denies: pain, tenderness, stiffness, swelling Neurological: denies: numbness, syncope, seizure, weakness Psychological: denies: anxiety, depression - Vital signs Selected Entries 02/26/18 02/26/18 15:56 16:29 Temperature 98.2 F Pulse Rate 89 Respiratory 16 Rate O2 Sat by Pulse 100 Oximetry Oxygen Flow 2 Rate Oxygen Delivery Nasal Cannula Method - Physical Exam Constitutional: NAD, awake, alert and oriented, well developed HEENT: normocephalic and atraumatic, PERRLA, EOMI, conjunctiva clear, grossly normal hearing, normal nasal mucosa, MMM, oropharynx clear -HEENT: poor dentition Neck: supple, FROM, no LAD, no JVD Chest: no-tender to palpation, no lesions Heart: RRR, normal S1/S2, no murmurs/rubs/gallops, pulses present, no edema Lungs: other -Lungs: poor air movement in both lung hawkins, faint wheezes in bilateral upper lobes Abdomen: soft, non-tender, bowel sounds present, no masses/distention Musculoskeletal: normal structure, normal tone Neurological: no focal deficit, normal sensation Skin: no rash/lesions, good turgor, capillary refill <2 seconds Heme/Lymphatic: no unusual bruising or bleeding, no LAD Psychiatric: normal mood and affect, good judgment and insight, intact recent and remote memory FMR H&P: Results - Labs Lab results: See scanned document from [place]-- Remarkable labs include WBC 15.24, but no diff. Neg CE's, BNP 73 CKD 3 (gfr 67) - EKG Interpretation EKG: see [place] records Chronic stable RBBB, no acute ST changes FMR H&P: A/P - Problem List (1) Acute exacerbation of chronic obstructive pulmonary disease (COPD) Current Visit: Yes Status: Acute Priority: High Code(s): J44.1 - CHRONIC OBSTRUCTIVE PULMONARY DISEASE W (ACUTE) EXACERBATION (2) HTN (hypertension) Current Visit: Yes Status: Acute Code(s): I10 - ESSENTIAL (PRIMARY) HYPERTENSION Qualifiers: Hypertension type: essential hypertension Qualified Code(s): I10 - Essential (primary) hypertension (3) CHF (congestive heart failure) Current Visit: Yes Status: Chronic Priority: Medium Code(s): I50.9 - HEART FAILURE, UNSPECIFIED Qualifiers: Heart failure type: combined systolic and diastolic Heart failure chronicity: chronic Qualified Code(s): I50.42 - Chronic combined systolic ( congestive) and diastolic (congestive) heart failure (4) BPH (benign prostatic hyperplasia) Current Visit: No Status: Chronic Priority: Medium Code(s): N40.0 - BENIGN PROSTATIC HYPERPLASIA WITHOUT LOWER URINRY TRACT SYMP Qualifiers: Lower urinary tract symptom presence: symptoms absent Qualified Code(s): N40.0 - Benign prostatic hyperplasia without lower urinary tract symptoms (5) Hx of coronary artery disease Current Visit: Yes Status: Acute Priority: Medium Code(s): Z86.79 - PERSONAL HISTORY OF OTHER DISEASES OF THE CIRCULATORY SYSTEM (6) Tobacco abuse Current Visit: Yes Status: Acute Priority: Medium Code(s): Z72.0 - TOBACCO USE (7) HLD (hyperlipidemia) Current Visit: No Status: Chronic Priority: Low Code(s): E78.5 - HYPERLIPIDEMIA, UNSPECIFIED Qualifiers: Hyperlipidemia type: unspecified Qualified Code(s): E78.5 - Hyperlipidemia , unspecified - Plan 1) COPD exacerbation- check CXR to rule out PNA or pleural effusions given leukocytosis. BCx drawn in [place]; Exam and hx c/w COPD exacerbation. Duonebs , steroids, abx. Home 2L O2 and may titrate up PRN to goal SpO2 90%. 2) HTN urgency- likely in light of medication noncompliance. restart home meds as prescribed on 02/18/[address] Alva. Monitor BPs. 3) CAD s/p RCA stent & CABG- trend trops, however this does not appear to be cardiac in origin. continue ASA, Brilinta 4) HLD- statin 5) mixed CHF- not exacerbated today. BNP 73 at outside ED and not clinically volume overloaded. resume home meds. 6) BPH- home rx Disposition/LOS: stable; anticipate 1-2 days FMR H&P: Upper Level - Plan Date/Time: 02/26/18 3246. I, [Merissa Portillo, ], am the upper level resident. Attending, Dr. Jolene Coronado, agrees with the above assessment & plan. Attending Addendum - Attending Addendum Date/Time: 02/26/18 2223 I personally evaluated the patient and discussed the management with I agree with the History, Examination, Assessment and Plan documented above with any addition or exceptions noted below- Briefly this is a 63 year old male with h/o COPD, CAD s/p stent placement in RCA last week and h/o of CABG in past , HTN, Tobacco use presents c/o progressive SOB since discharge from hospital. Intermittent initially but worsening in this morning prompting evaluation in ER. Patient has not been able to fill his new medications from his discharge after the stent placement due to finances (lower dose of coreg and lasix) but has been taking his other medications. (+) cough with productive sputum. Denies any fever. PMH/PSH/Meds/All/SH/ROS reviewed and agree with residents documentation. T98.2 P89 BP 139/79 RR 16 100% on 2L NC Exam repeated by me and agree with residents finding. Labs: WBC=15.2 BNP=72 troponin I neg x2 EKG - NSR with RBBB, no acute ST changes. A/P: 1) COPD exacerbation- SOB improved after duoneb. Continue duonebs, add steroids and levaquin. 2) CAD s/p recent stent placement- no evidence of restenosis. Continue to monitor. 3) HTN urgency - resolved. Continue to monitor and adjust meds as needed.
[2018-02-26 16:45] VITALS: BMI 22.1
[2018-02-26 17:17] LABS: Troponin I 0.012 ng/mL (< 0.028)
--- NOTE | 2018-02-26 17:42 | RAD ---
TWO VIEWS OF THE CHEST: 02/26/18 COMPARISON: 11/13/17 HISTORY: Shortness of breath. FINDINGS: Two views of the chest show normal sized cardiomediastinal silhouette with atherosclerotic calcificat ions in the aorta. The patient is status post sternotomy. Hyperexpansion of the lungs may be secondar y to COPD. There is no evidence of consolidation, mass, or pleural effusion. Degenerative changes ar e seen in the spine. IMPRESSION: 1. No evidence of acute cardiopulmonary disease. 2. COPD. POS: ANJEL
[2018-02-26] MEDS ORDERED: methylPREDNISolone Sod Succ/PF 125 MG/2 ML VIAL IVP SCH (18:00)
[2018-02-26] MEDS ORDERED: Nicotine 14 MG PATCH TD PRN (18:00)
[2018-02-26] MEDS: Mometasone/Formoterol 120 PUFF INHALER INH SCH (19:02)
[2018-02-26 20:26] LABS: Troponin I Less than 0.010 ng/mL (< 0.028)
[2018-02-26] MEDS: Atorvastatin Calcium 40 MG TAB PO SCH (20:37)
[2018-02-26] MEDS: Tamsulosin HCl 0.4 MG CAP PO SCH (20:37)
[2018-02-26] MEDS: Famotidine 20 MG TAB PO SCH (20:37)
[2018-02-26] MEDS: Finasteride 5 MG TAB PO SCH (20:37)
[2018-02-26] MEDS: Carvedilol 6.25 MG TAB PO SCH (20:38)
[2018-02-26] MEDS: Docusate 100 MG CAP PO SCH (20:38)
[2018-02-26] MEDS: Acetaminophen 325 MG TAB PO PRN (23:03)
[2018-02-27] MEDS: Acetaminophen 325 MG TAB PO PRN ×3 (04:19→14:26)
[2018-02-27 04:48] LABS: #Lymphocytes 0.6 thou/uL (1.20-3.40); #Monocytes 0.1 thou/uL (0.11-0.59); #Neutrophils 5.7 thou/uL (1.40-6.50); %Eosinophils 0.4 % (0.0-10.0); %Monocytes 1.6 % (0.0-10.0); %Neutrophils 89.1 % (42.0-75.0); Hemoglobin 12.4 g/dL (14.0-18.0); Mean Corpuscular HGB CONC 34.6 g/dL (32.0-36.0); Mean Corpuscular Hemoglobin 32.7 pg (27.0-31.0); Mean Corpuscular Volume 94.4 fl (80.0-94.0); Mean Platelet Volume 6.5 fL (7.4-10.4); Platelet Count 266 thou/uL (130-400); RBC Distribution Width 13.9 % (11.5-14.5); Red Blood Cell (RBC) Count 3.79 mill/uL (4.70-6.10); White Blood Cell (WBC) Count 6.4 thou/uL (4.8-10.8)
[2018-02-27 05:03] LABS: Anion Gap 10 mmol/L (10-20); BUN (Urea Nitrogen) 21 mg/dL (8.4-25.7); Calc. Creatinine Clearance 80 mL/min (70-130); Calcium 9.3 mg/dL (7.8-10.44); Carbon Dioxide 24 mmol/L (23-31); Chloride 102 mmol/L (98-107); Estimated GFR-MDRD 84; Glucose 198 mg/dL (80-115); Potassium 3.9 mmol/L (3.5-5.1); Sodium 132 mmol/L (136-145)
[2018-02-27] MEDS: Mometasone/Formoterol 120 PUFF INHALER INH SCH ×2 (06:04→18:26)
[2018-02-27] MEDS ORDERED: Spiriva 18 MCG CAP (Box of 5 Caps) INH SCH (07:00)
[2018-02-27] MEDS ORDERED: predniSONE 20 MG TAB PO SCH (08:00)
[2018-02-27] MEDS ORDERED: Ezetimibe 10 MG TAB PO SCH (09:00)
[2018-02-27] MEDS ORDERED: TICAGRELOR 90 MG TABLET PO SCH (09:00)
[2018-02-27] MEDS ORDERED: TIOTROPIUM BROMIDE PO SCH (09:00)
[2018-02-27] MEDS ORDERED: Enoxaparin Sodium 40 MG/0.4 ML SYRINGE SC SCH (09:00)
[2018-02-27] MEDS ORDERED: Lisinopril 5 MG TAB PO SCH (09:00)
[2018-02-27] MEDS ORDERED: Furosemide 20 MG TAB PO SCH (09:00)
[2018-02-27] MEDS: Docusate 100 MG CAP PO SCH (09:27)
[2018-02-27] MEDS: Carvedilol 6.25 MG TAB PO SCH ×2 (09:28→21:05)
[2018-02-27] MEDS: Famotidine 20 MG TAB PO SCH ×2 (09:29→21:06)
--- NOTE | 2018-02-27 11:57 | PDOC.FM ---
- Subjective Subjective: Patient doing well this morning, sitting up in bed comfortably. He is on 2.5L O2 NC for sats. Afebrile, VSS - Objective MAR Reviewed: Yes Vital Signs & Weight: Vital Signs (12 hours) Temp Pulse Resp BP Pulse Ox 02/27/18 09:32 92 18 93 L 02/27/18 07:43 98.5 F 92 18 114/60 100 02/27/18 06:04 85 16 99 02/27/18 06:02 99 02/27/18 06:00 85 16 99 02/27/18 04:15 98.5 F 82 16 97/54 L 100 02/27/18 02:41 82 16 100 Weight Weight 68.991 kg I&O: 02/26/18 02/27/18 02/28/18 06:59 06:59 06:59 Intake Total 1132 Output Total 600 Balance 532 Result Diagrams: 02/27/18 04:17 02/27/18 04:17 <Kushal Singh - Last Filed: 02/27/18 11:55> - Objective Vital Signs & Weight: Vital Signs (12 hours) Temp Pulse Resp BP Pulse Ox 02/27/18 11:28 98.5 F 80 20 103/66 99 02/27/18 09:32 92 18 93 L 02/27/18 07:43 98.5 F 92 18 114/60 100 02/27/18 06:04 85 16 99 02/27/18 06:02 99 02/27/18 06:00 85 16 99 02/27/18 04:15 98.5 F 82 16 97/54 L 100 Weight Weight 68.991 kg I&O: 02/26/18 02/27/18 02/28/18 06:59 06:59 06:59 Intake Total 1132 Output Total 600 Balance 532 Result Diagrams: 02/27/18 04:17 02/27/18 04:17 <Brown Kessler - Last Filed: 02/27/18 14:51> Phys Exam - Physical Examination Constitutional: NAD HEENT: moist MMs Neck: supple Respiratory: no wheezing, no rales decreased breath sounds bilaterally Cardiovascular: RRR, no significant murmur Gastrointestinal: soft, non-tender, no distention Musculoskeletal: no edema Neurological: moves all 4 limbs Psychiatric: normal affect, A&O x 3 Skin: no rash <Kushal Singh - Last Filed: 02/27/18 11:55> Dx/Plan (1) COPD exacerbation Code(s): J44.1 - CHRONIC OBSTRUCTIVE PULMONARY DISEASE W (ACUTE) EXACERBATION Status: Acute Plan: -continue duonebs, steroids, and antibiotics -patient uses O2 PRN at home and is on 2L in the hospital -f/u blood cultures -leukocytosis resolved and he is afebrile so likely not CAP (2) HTN (hypertension) Code(s): I10 - ESSENTIAL (PRIMARY) HYPERTENSION Status: Chronic QualifierTitle: Hypertension type: essential hypertension Qualified Code( s): I10 - Essential (primary) hypertension Plan: -pressures appropriate since admission -continue home medications (3) Hx of coronary artery disease Code(s): Z86.79 - PERSONAL HISTORY OF OTHER DISEASES OF THE CIRCULATORY SYSTEM Status: Chronic Plan: -stent placed in RCA by Dr. Alva on 02/18 -low risk for PE -trops negative -continue home meds (4) Systolic CHF Code(s): I50.20 - UNSPECIFIED SYSTOLIC (CONGESTIVE) HEART FAILURE Status: Chronic Plan: -followed closely by cardiology -will check BNP now and continue home meds (5) BPH (benign prostatic hyperplasia) Code(s): N40.0 - BENIGN PROSTATIC HYPERPLASIA WITHOUT LOWER URINRY TRACT SYMP Status: Chronic QualifierTitle: Lower urinary tract symptom presence: symptoms absent Qualified Code(s): N40.0 - Benign prostatic hyperplasia without lower urinary tract symptoms Plan: -continue tamsulosin and finasteride (6) HLD (hyperlipidemia) Code(s): E78.5 - HYPERLIPIDEMIA, UNSPECIFIED Status: Chronic QualifierTitle: Hyperlipidemia type: unspecified Qualified Code(s): E78.5 - Hyperlipidemia, unspecified Plan: -continue atorvastatin - Plan Plan: -BNP pending -continue abx, steroids, and duonebs until back to baseline <Kushal Singh - Last Filed: 02/27/18 11:55> Attending Addendum - Attending Addendum Date/Time: 02/27/18 7395 I personally evaluated the patient and discussed the management with Dr. Singh. I agree with and repeated the History, Examination, Assessment and Plan documented above with any addition or exceptions noted below. Patient's symptoms have improved quite a bit. No chest pain, improved shortness of breath and cough. He has had no fever or chills. Slightly tachypneic, prominent accessory, poor air movement with very prolonged exp phase and faint wheezes No JVD or crackles, RRR s M BS+, NTTP Labs and imaging reviewed Continue steroids, antibiotics, and nebs. Low suspicion for cardiac etiology at this point. Bnp negative. Low suspicion for PE; D-dimer negative. Will likely keep overnight and discharge in the AM if continued improvement. DVT and GI ppx as indicated. <Brown Kessler - Last Filed: 02/27/18 14:51>
--- NOTE | 2018-02-27 12:04 | PDOC.EVN ---
Event Note - Event Note Event Note: Patient wished to discuss code status on rounds this morning. He does not want to be resuscitated if his heart were to stop. I explained the difference between full code, DNR, and DNI. He does not wish to be intubated if he were to stop breathing. He does not want chest compressions or any heroic measures performed if his heart were to stop. <Kushal Singh - Last Filed: 02/27/18 12:03> Attending Addendum - Attending Addendum Date/Time: 02/27/18 1451 I was present for this discussion. <Brown Kessler - Last Filed: 02/27/18 14:51>
[2018-02-27 19:39] VITALS: BP 106/60; TEMP 98.6
[2018-02-27 20:54] LABS: Troponin I Less than 0.010 ng/mL (< 0.028)
[2018-02-27] MEDS: Atorvastatin Calcium 40 MG TAB PO SCH (21:05)
[2018-02-27] MEDS: Finasteride 5 MG TAB PO SCH (21:05)
[2018-02-27] MEDS: Tamsulosin HCl 0.4 MG CAP PO SCH (21:06)
--- NOTE | 2018-02-28 12:40 | DIS-2 ---
DATE OF ADMISSION: 02/26/2018 DATE OF DISCHARGE: 02/27/2018 RESIDENT: Kushal Singh M.D. ADMITTING ATTENDING: Jolene Coronado M.D. DISCHARGE ATTENDING: Brown Kessler M.D. CONSULTS: None. PROCEDURES: Chest x-ray showing COPD, but no acute cardiopulmonary disease. PRIMARY DIAGNOSES: 1. Chronic obstructive pulmonary disease exacerbation. 2. Hypertensive urgency. SECONDARY DIAGNOSES: 1. Coronary artery disease, status post right coronary artery stent and coronary artery bypass graft. 2. Hyperlipidemia. 3. Congestive heart failure. 4. Benign prostatic hypertrophy. DISCHARGE MEDICATIONS: 1. Albuterol sulfate 2.5 mg/3 mL neb b.i.d. p.r.n. 2. Finasteride 5 mg p.o. at bedtime. 3. Tamsulosin 0.4 mg p.o. at bedtime. 4. Zetia 10 mg p.o. daily. 5. Ranexa 1000 mg p.o. b.i.d. 6. Spiriva 4 g mist p.o. daily. 7. Advair Diskus 250/50 two puffs inhaled b.i.d. 8. Vitamin C 500 mg p.o. daily. 9. Brilinta 90 mg p.o. daily. 10. Famotidine 20 mg p.o. b.i.d. 11. Nitroglycerin 0.4 mg sublingual q.5 minutes p.o. daily. 12. Levaquin 500 mg p.o. daily x 5 days. 13. Prednisone 20 mg p.o. daily for 5 days. 14. Aspirin 81 mg p.o. daily. 15. Atorvastatin 80 mg p.o. daily. 16. Carvedilol 12.5 p.o. b.i.d. 17. Furosemide 20 mg p.o. daily. 18. Lisinopril 5 mg p.o. daily. DISCONTINUED MEDICATIONS: None. HISTORY OF PRESENT ILLNESS AND HOSPITAL COURSE: A 64-year-old male with past medical history of CAD status post stent placement 02/16/2018, of his right coronary artery also has a history of prior CABG with coronary artery occlusion. He presented to [facility] with progressive worsening shortness of breath and production of greenish sputum. The patient has been unable to fill his cardiac medications [facility]. Otherwise, he was compliant with medications. His main complaint was shortness of breath, cough, sputum and increased oxygen requirement at home. The patient was also found to be in hypertensive urgency. Denies any headaches, chest pain,vision changes on admission. This is likely due to medication noncompliance. The patient admitted for COPD exacerbation. He was started on Levaquin, DuoNebs , prednisone. His respiratory status greatly improved within 24 hours, no longer requiring oxygen on day of discharge. The patient's white count is 6.4 on day of discharge, clinically stable. The patient's hypertensive urgency resolved. He remained afebrile with normal vital signs and blood pressure of 114/60 on morning of discharge. We restarted his home medication regimen and continued to be asymptomatic. The patient's BMP was normal other than mildly elevated glucose likely secondary to steroid use. The patient's BNP was negative, ruling out exacerbation of his mixed heart failure. The patient's D-dimer was also negative to rule out pulmonary embolism. DISPOSITION: Stable. DISCHARGE INSTRUCTIONS: 1. Location: Home. 2. Diet: Heart healthy. 3. Activity: As tolerated. 4. Followup: Follow up with his out of town primary care doctor in 5-7 days. CEL[facility]
== END 2018-02-27 21:09 | disposition home or self-care (01) ==
LOC: 2SW 15:39 → UNDOADMIN 15:39 → EDSTATUS 15:42
PROVIDERS: ADMIT Family Medicine; ATTEND Family Medicine
DX: J44.1 Chronic obstructive pulmonary disease with (acute) exacerbation (principal); I16.0 Hypertensive urgency; I25.10 Atherosclerotic heart disease of native coronary artery without angina pectoris; E78.5 Hyperlipidemia, unspecified; I11.0 Hypertensive heart disease with heart failure; I50.42 Chronic combined systolic (congestive) and diastolic (congestive) heart failure; N40.0 Benign prostatic hyperplasia without lower urinary tract symptoms; F17.210 Nicotine dependence, cigarettes, uncomplicated; I25.2 Old myocardial infarction; Z95.1 Presence of aortocoronary bypass graft; Z95.5 Presence of coronary angioplasty implant and graft; Z79.02 Long term (current) use of antithrombotics/antiplatelets; Z79.51 Long term (current) use of inhaled steroids; Z79.82 Long term (current) use of aspirin; Z79.899 Other long term (current) drug therapy; Z99.81 Dependence on supplemental oxygen; Z66 Do not resuscitate
CPT/HCPCS: 71046; 80048; 83880; 84484 ×3; 85025; 85379; 94640 ×5; 94760 ×2; 96365; 96372; 96375; 97139; G0378 ×2; 36415; A4216; J1650; J1956; J2920; J2930; J7506; J7620